=== PATIENT | female | born 1960 | race Native Hawaiian/Other Pacific Islander ===

== ENCOUNTER 2022-03-28 16:47 | Emergency (ER) | payer BC ==
[~2022-03-28] VITALS: Ht 167.6 cm; Wt 87.5 kg
[2022-03-28 17:00] VITALS: BP 143/78; TEMP 98.9
== END 2022-03-28 18:40 | disposition home or self-care (01) ==
LOC: ED 16:47
DX: J20.9 Acute bronchitis, unspecified (principal); J32.8 Other chronic sinusitis; H10.89 Other conjunctivitis; U07.1 COVID-19; F17.210 Nicotine dependence, cigarettes, uncomplicated
CPT/HCPCS: 87502; 87635; 87651; 99283; U0001